=== PATIENT | female | born 1965 | race Two or more races ===

== ENCOUNTER → 2018-09-10 07:15 | Day surgery (SDC) | payer OTHER ==
--- NOTE | 2018-09-02 19:47 | HP ---
HISTORY AND PHYSICAL: DATE OF ADMISSION: 09/10/18 PROVIDER: Francisca Colunga MD * (DICTATED BY GAL IRAHETA) HISTORY OF PRESENT ILLNESS: Ms. Roberts is a 53-year-old female with continued left knee pain. The pain is 4/10, intermittent pain along the medial joint line , increased with pivoting, twisting, deep bending, and prolonged standing. She continues to have catching and locking in her knee. An MRI was obtained and reviewed, which showed a horizontal tear of the medial meniscus. She would like to undergo surgery to help with her mechanical symptoms. PAST MEDICAL HISTORY: Asthma. PAST SURGICAL HISTORY: 1. x2. 2. D and C. 3. Gallbladder removal. 4. Removal of objects from right middle finger. MEDICATIONS: 1. Arnuity Ellipta. 2. Daja 24 hours. 3. Multivitamin Adult plus Iron. ALLERGIES: None. SOCIAL HISTORY: The patient lives with her spouse and 2 daughters. 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 She does not drink, smoke, or use illicit drugs. She is right-hand dominant. REVIEW OF SYSTEMS: General: The patient denies fevers, chills, or night sweats. No known anesthesia problems. HEENT: The patient denies headaches, lightheadedness, or syncopal episodes. Cardiothoracic: The patient denies chest pain or heart palpitations. Pulmonary: The patient denies shortness of breath with exertion, chronic cough, or COPD. GI: The patient denies any nausea, vomiting, diarrhea, or constipation. : The patient denies any nocturia, urinary frequency, or urgency. MSK: The patient denies any chronic or intermittent back pain or fractures. Neuro: The patient denies any paresthesias, numbness, seizures, or stroke. Integument: The patient denies any abrasions, lesions, rashes, lumps, or open sores. PHYSICAL EXAMINATION GENERAL: The patient is alert and oriented x3, appropriate mood and affect, appropriate dress and hygiene, no acute distress. HEENT: Normocephalic, atraumatic. Hearing and vision are grossly intact. PULMONARY: Lungs are clear to auscultation bilaterally with no wheezes, rales, or rhonchi. CARDIO: Regular rate and rhythm. Normal S1 and S2. No appreciable S3 or S4. No murmurs, rubs, or gallops. MUSCULOSKELETAL: Inspection of the left knee reveals no erythema or ecchymosis. Skin is warm, dry, and intact. She has range of motion of 10 degrees shy of full extension with pain to 110 degrees of flexion. She has positive medial joint line tenderness to palpation Positive patellofemoral joint line tenderness to palpation. No lateral joint line tenderness to palpation. Negative anterior and posterior drawer tests. Negative varus and valgus stress testing. Positive Magalys's testing causing medial sided joint pain. Calves are soft and nontender. She is neurovascularly intact distally with a 2+ dorsalis pedis. IMPRESSION: Horizontal tear of the medial meniscus of the left knee. PLAN: The patient will go to the OR on 09/10/18 for a left knee arthroscopy with partial medial meniscectomy. She will follow up 10 to 14 days postop for suture removal and followup. The risks and complications of surgery were reviewed with the patient and she understood these. GAL IRAHETA [id number]/[facility] #: [id number] SANTIAGO
[~2018-09-10 07:15] MED LIST: Buffered Lidocaine 0.9% SYRIN* 5 ML/SYR SYRINGE INTRADERM ONE; Bupivacaine 0.5%* 50 ML VIAL ONE; Chloroprocaine 2%* 20 ML VIAL ONE; Dexamethasone IV* 4 MG/ML 1 ML (4 MG) IV SLOW PU ONE; Dexamethasone IV* 4 MG/ML 1 ML (4 MG) ONE; DiMENhydriNATE IV* 50 MG/ML VIAL IV PUSH PRN; EPINEPHRINE 1 MG/ML 1 ML VIAL ONE; Famotidine IV* 10 MG/ML 2 ML (20 mg) IV ONE; Famotidine IV* 10 MG/ML 2 ML (20 mg) ONE; HYDROmorphone INJ1* 1 MG/ML SYRINGE IV PRN; Ketorolac INJ* 30 MG/ML 1 ML VIAL ONE; Lactated Ringers 1000 ML Bag* 1,000 ML IV SCH; Midazolam* 1 MG/ML 5 ML VIAL (5 MG) ONE; Naloxone* 0.4 MG/ML 1 ML VIAL IV PRN; Ondansetron INJ* 2 MG/ML VIAL IV PRN; Ondansetron INJ* 2 MG/ML VIAL ONE; Phenylephrine INJ* 10 MG/ML 1 ML VIAL (10 MG) ONE; Propofol* 10 MG/ML 20 ML BTL ONE; Scopolamine 1.5 mg* PATCH TRANSDERM PRN; ceFAZolin 2 GM PREMIX in ORs 2 GM/50 ML BAG IVPB ONE; fentaNYL* 50 MCG/ML 2 ML VIAL (100 MCG VIAL) IV PRN; methylPREDNISolone ACETATE 80* 80 MG/ML 1 ML VIAL ONE; oxyCODONE/Acetamin 5/325 MG* TAB ONE; oxyCODONE/Acetamin 5/325 MG* TAB PO PRN
[2018-09-10 11:56] VITALS: BP 118/75
--- NOTE | 2018-09-11 05:07 | OP ---
DATE OF OPERATION: 09/10/18 - [facility] DATE OF : 67 SURGEON: Francisca Colunga MD. HOSIERY MENDER: GAL Pascual. Mr. Perkins did help throughout the procedure with preparation of the leg, wound retraction, manipulation of the knee, and wound closure. ANESTHESIOLOGIST: Dr. Howard. ANESTHESIA: Spinal. PRE-OP DIAGNOSIS: Left knee medial meniscal tear with [id number] degenerative changes. POST-OP DIAGNOSIS: Left knee medial meniscal tear, lateral meniscal tear, moderate- to-severe degenerative osteoarthritis. OPERATIVE PROCEDURE: Left knee arthroscopy with partial medial meniscectomy, partial lateral meniscectomy, medial chondroplasty, and patellofemoral chondroplasty. ESTIMATED BLOOD LOSS: Less than 25 cc. COMPLICATIONS: None. SPECIMEN: None. BRIEF HISTORY/INDICATIONS: Ms. Roberts is a 53-year-old female who had a traumatic injury to her left knee when she was getting off a bus and had a twisting injury. She first saw me in April and we did feel that there was a meniscal tear. An MRI confirmed medial meniscal tear and some arthritic changes. The patient tried conservative treatment with antiinflammatories, physical therapy, and intraarticular injections. When these failed to relieve her mechanical symptoms, she elected to undergo a left knee arthroscopy. Informed consent was obtained from the patient. She understood the risks of surgery included, but were not limited to bleeding, infection, damage to nearby structures, continued pain, need for further surgery, re-tear of the meniscus, progression of arthritis, stroke, heart attack, blood clot, and . She wished to proceed. INTRAOPERATIVE FINDINGS: Intraoperatively, the patient was noted to have a tear in the white-red zone of the medial meniscus involving the mid portion and posterior horn, she had a displaced tear of the posterior horn of the lateral meniscus as well, she had grade III and IV Outerbridge cartilage changes in both the medial and patellofemoral compartment with significant cartilage flapping. DESCRIPTION OF PROCEDURE: Ms. Roberts was identified in the preanesthesia unit. Her left lower extremity was marked as the correct operative side. Informed consent was signed and placed in the chart. The patient was taken to the operating room and placed under spinal anesthesia. Left lower extremity was prepped and draped in the usual sterile fashion. Preop time-out was made to correctly identify the patient, side, and site. Appropriate perioperative antibiotics were given within 1 hour of incision. A 0.5 cm anterolateral portal incision was made with a 10 blade and carried down through the capsule. Trocar was introduced. As soon as the light and water sources were turned on, there was immediate visualization of the supra- patellar pouch. A tour of the knee joint was performed. Suprapatellar pouch had no obvious abnormality. Patellofemoral compartment had grade III and IV Outerbridge cartilage changes with exposed chondral bone and cartilage flapping. Medial gutter showed no loose body or plica. Medial compartment showed advanced arthritis with grade III and IV Outerbridge cartilage changes along the majority of the medial femoral condyle with cartilage flapping. There was an obvious medial meniscal tear. ACL and PCL appeared to be intact. The knee was placed in a [id number] position. There was a displaced radial type tear of the posterior horn of the lateral meniscus. There was no other obvious lateral meniscal tear. Minimal degenerative changes in the lateral compartment. Lateral gutter showed no loose body or plica. Under direct visualization, a medial portal incision was made. Probe was introduced and a second tour of the knee joint was performed. Shaver was used to remove some soft tissue anteriorly to improve visualization. A radiofrequency ablation wand was used to smooth any cartilage flaps along the medial femoral condyle and the medial compartment. The radiofrequency ablation wand was then used to smooth any cartilage flaps in the patellofemoral compartment, mainly along the medial patellar facet. Next, a straight biter was introduced. Partial medial meniscectomy was performed in the white-red zone. A smooth border of the medial meniscus was obtained. Further probing of the meniscus showed no additional tearing. Radiofrequency ablation wand and shaver were used to further smooth the edge of the meniscus. Next, the knee was placed in the [id number] position. Shaver was used to remove the posterolateral meniscal tear. Further probing of the lateral meniscus showed no additional tears. The knee was copiously irrigated with sterile saline. All instruments were removed. The incisions were closed using interrupted 3-0 Vicryl suture. Intraarticular injection of 80 mg of Depo- Medrol and 6 cc of 0.25% Marcaine was placed in the knee joint. The incisions were covered with sterile Xeroform, 4x4s, and Webril. Truong wrap and cold pack were placed over this. The patient's anesthesia was reversed without difficulty. She was taken to the PACU in stable condition. Intended weightbearing will be weightbearing as tolerated. Intended DVT prophylaxis will be aspirin. [id number]/[facility] #: [id number] MTDD
== END | disposition home or self-care (01) ==
LOC: OR 07:15
PROVIDERS: ATTEND Orthopaedic Surgery Adult Reconstructive Orthopaedic Surgery
DX: S83.242A Other tear of medial meniscus, current injury, left knee, initial encounter (principal); S83.282A Other tear of lateral meniscus, current injury, left knee, initial encounter; M17.12 Unilateral primary osteoarthritis, left knee; X58.XXXA Exposure to other specified factors, initial encounter; Y92.89 Other specified places as the place of occurrence of the external cause; J45.909 Unspecified asthma, uncomplicated
CPT/HCPCS: 81025; A9270-GY; J0690; J1040; J1100; J1885; J2250; J2400; J2405; J2704